=== PATIENT | female | born 1935 | race Caucasian/White ===

== ENCOUNTER 2024-11-12 13:02 | Inpatient (IN) | payer MEDICARE, BC ==
[~2024-11-12] VITALS: Ht 162.6 cm; Wt 42.6 kg
[2024-11-12] MEDS: IV NS 0.9% 1,000 ML BAG IV ONE (13:30)
[2024-11-12] MEDS: VANCOMYCIN 1 GM in IV D5W 250 ML IV ONE (13:30)
[2024-11-12] MEDS: CEFEPIME 1 GM in IV D5W 50 ML IV ONE (13:30)
[2024-11-12 13:56] LABS: BASOPHILS # (AUTO) 0.1 K/uL (0.0-0.2); BASOPHILS % (AUTO) 0.6 % (0.0-2.0); EOSINOPHILS # (AUTO) 0.2 K/uL (0.0-0.7); EOSINOPHILS % (AUTO) 1.7 % (0.0-6.0); HEMATOCRIT 39 % (33-45); LYMPHOCYTES # (AUTO) 1.8 K/uL (0.8-4.8); LYMPHOCYTES % (AUTO) 14.2 % (20.0-44.0); MEAN CORPUSCULAR HEMOGLOBIN 30 PG (26.0-33.0); MEAN CORPUSCULAR HGB CONC 33 g/dl (31.0-36.0); MEAN CORPUSCULAR VOLUME 91 fL (82-100); MONOCYTES # (AUTO) 1.2 K/uL (0.1-1.30); MONOCYTES % (AUTO) 9.6 % (2.0-12.0); NEUTROPHILS # (AUTO) 9.2 K/uL (1.8-8.9); NEUTROPHILS % (AUTO) 73.9 % (43.0-81.0); PLATELET COUNT (AUTO) 263 K/uL (150-450); RED BLOOD CELL COUNT(AUTO) 4.27 MIL/uL (4.0-5.2); WHITE BLOOD COUNT (AUTO) 12.5 K/uL (4.3-11.0)
[2024-11-12 14:02] LABS: INR 1.02 (0.91-1.10); PARTIAL THROMBOPLASTIN TIME 25.3 SEC (24.3-34.3); PROTHROMBIN TIME 10.8 SECS (9.2-11.1)
[2024-11-12 14:05] LABS: CALCIUM, SERUM 9.1 mg/dL (8.5-10.1); CARBON DIOXIDE 25 mmol/L (21-32); CHLORIDE 101 mmol/L (98-107); GLUCOSE 96 mg/dL (74-106); SODIUM SERUM 135 mmol/L (136-145); UREA NITROGEN, BLOOD 18 mg/dL (7-18)
[2024-11-12 14:10] LABS: ALANINE AMINOTRANSFERASE 15 U/L (12-78); ALKALINE PHOSPHATASE 101 U/L (46-116); ASPARTATE AMINOTRANSFERASE 15 U/L (15-37); BILIRUBIN,DIRECT 0.1 mg/dL (0.0-0.2); BILIRUBIN,TOTAL 0.4 mg/dL (0.2-1.0); TOTAL PROTEIN, SERUM 7.1 g/dL (6.4-8.2)
[2024-11-12 14:12] LABS: LACTIC ACID 1.6 mmol/L (0.4-2.0)
[2024-11-12] MEDS ORDERED: QUET50TA PO (14:14)
[2024-11-12] MEDS ORDERED: ARIP2TAB3 PO (14:14)
[2024-11-12] MEDS ORDERED: TRAZ-182 PO (14:14)
[2024-11-12] MEDS ORDERED: DIVA125C5 PO (14:14)
[2024-11-12] MEDS ORDERED: SERT50TA PO (14:14)
[2024-11-12] MEDS ORDERED: ALBU2.5V38 IH (14:14)
[2024-11-12] MEDS ORDERED: LORA-258 PO (14:14)
[2024-11-12] MEDS ORDERED: MAGNESIUM HYDROXIDE 30 ML UDC PO PRN (16:30)
[2024-11-12] MEDS ORDERED: MAG HYDROX/AL HYDROX/SIMETH 30 ML UDC PO PRN (16:30)
[2024-11-12] MEDS ORDERED: ONDANSETRON HCL/PF 4 MG/2 ML VIAL IVP PRN (16:30)
[2024-11-12] MEDS ORDERED: ALBUTEROL FS 2.5 MG/3 ML VIAL.NEB NEB PRN (17:00)
[2024-11-12] MEDS ORDERED: IPRATROPIUM NEB FS 0.5 MG/2.5 ML AMPUL.NEB NEB PRN (17:00)
[2024-11-12 20:00] VITALS: BP 112/91; TEMP 98.1; O2SAT 93
[2024-11-12] MEDS: DIVALPROEX SODIUM 125 MG CAP.SPRINK PO SCH (20:30)
[2024-11-12] MEDS: TRAZODONE 50 MG TABLET PO SCH (22:57)
[2024-11-12] MEDS: CEFEPIME 1 GM in IV D5W 50 ML IV SCH (22:57)
[2024-11-12] MEDS: QUETIAPINE FUMARATE 25 MG TABLET PO SCH (22:57)
[2024-11-12] MEDS: LORAZEPAM 0.5 MG TABLET PO SCH (22:57)
[2024-11-13 04:00] VITALS: BP 110/73; TEMP 97.7; O2SAT 98
[2024-11-13 06:07] LABS: BASOPHILS % (AUTO) 0.2 % (0.0-2.0); EOSINOPHILS # (AUTO) 0.3 K/uL (0.0-0.7); EOSINOPHILS % (AUTO) 2.1 % (0.0-6.0); HEMATOCRIT 38 % (33-45); HEMOGLOBIN 12.6 g/dL (11.5-14.8); LYMPHOCYTES # (AUTO) 1.6 K/uL (0.8-4.8); LYMPHOCYTES % (AUTO) 12.5 % (20.0-44.0); MEAN CORPUSCULAR HEMOGLOBIN 30 PG (26.0-33.0); MEAN CORPUSCULAR HGB CONC 33 g/dl (31.0-36.0); MEAN CORPUSCULAR VOLUME 91 fL (82-100); MONOCYTES % (AUTO) 8.3 % (2.0-12.0); NEUTROPHILS # (AUTO) 9.6 K/uL (1.8-8.9); NEUTROPHILS % (AUTO) 76.9 % (43.0-81.0); PLATELET COUNT (AUTO) 225 K/uL (150-450); RED BLOOD CELL COUNT(AUTO) 4.16 MIL/uL (4.0-5.2); RED CELL DISTRIBUTION WIDTH 14.9 % (11.5-15.0); WHITE BLOOD COUNT (AUTO) 12.5 K/uL (4.3-11.0)
[2024-11-13 06:18] LABS: CALCIUM, SERUM 8.8 mg/dL (8.5-10.1); CREATININE 0.8 mg/dL (0.6-1.3); MAGNESIUM 2.2 mg/dL (1.8-2.4); PHOSPHORUS 3.6 mg/dL (2.5-4.9); POTASSIUM 4.5 mmol/L (3.5-5.1)
[2024-11-13 06:34] LABS: THYROID STIMULATING HORMONE 1.78 uIU/mL (0.358-3.74)
[2024-11-13] MEDS: PANTOPRAZOLE 40 MG TABLET.DR PO SCH (07:55)
[2024-11-13 08:00] VITALS: BP 111/60; TEMP 97.7; O2SAT 99
[2024-11-13] MEDS: SERTRALINE HCL 50 MG TABLET PO SCH (09:23)
[2024-11-13] MEDS: ARIPIPRAZOLE 2 MG TABLET PO SCH (09:23)
[2024-11-13] MEDS: Z GUARD REMEDY 4 OZ OINT TP PRN (09:24)
[2024-11-13] MEDS: ENSURE ENLIVE 237 ML LIQUID (VANILLA) PO SCH (11:15)
[2024-11-13 12:00] VITALS: BP 104/55; TEMP 97.5; O2SAT 96
[2024-11-13] MEDS: ENOXAPARIN SODIUM 30 MG/0.3 ML DISP.SYRIN SQ SCH (13:06)
[2024-11-13] MEDS: VANCOMYCIN 750 MG in IV D5W 250 ML IV SCH (13:07)
[2024-11-13 20:00] VITALS: BP 126/71; TEMP 97.8; O2SAT 94
[2024-11-14] MEDS: IV NS 0.9% 500 ML IV ONE (01:16)
[2024-11-14 01:50] VITALS: BP 107/65; TEMP 98; O2SAT 96
[2024-11-14 04:00] VITALS: BP 107/69; TEMP 98.6; O2SAT 100
[2024-11-14 06:52] LABS: CALCIUM, SERUM 8.7 mg/dL (8.5-10.1); CREATININE 0.8 mg/dL (0.6-1.3)
[2024-11-14] MEDS: IV D5 LR 1,000 ML IV PRN (11:05)
[2024-11-14 12:00] VITALS: BP 110/71; TEMP 98.5; O2SAT 95
[2024-11-14] MEDS: PROSOURCE / PROSTAT (PYXIS) 30 ML UDC PO SCH (13:00)
[2024-11-14 20:00] VITALS: BP 113/62; TEMP 98.4; O2SAT 94
[2024-11-15 04:00] VITALS: BP 97/52; TEMP 98.4; O2SAT 94
[2024-11-15 07:32] LABS: CALCIUM, SERUM 8.9 mg/dL (8.5-10.1); CARBON DIOXIDE 30 mmol/L (21-32); CHLORIDE 106 mmol/L (98-107); CREATININE 0.6 mg/dL (0.6-1.3); GLUCOSE 107 mg/dL (74-106); POTASSIUM 3.7 mmol/L (3.5-5.1); SODIUM SERUM 142 mmol/L (136-145); UREA NITROGEN, BLOOD 10 mg/dL (7-18)
[2024-11-15 08:00] VITALS: BP 91/52; TEMP 98; O2SAT 94
[2024-11-15 11:45] LABS: BASOPHILS # (AUTO) 0.1 K/uL (0.0-0.2); EOSINOPHILS # (AUTO) 0.4 K/uL (0.0-0.7); EOSINOPHILS % (AUTO) 3.3 % (0.0-6.0)
[2024-11-15 11:58] LABS: BASOPHILS % (AUTO) 0.7 % (0.0-2.0); HEMATOCRIT 34 % (33-45); HEMOGLOBIN 11.4 g/dL (11.5-14.8); LYMPHOCYTES # (AUTO) 1.2 K/uL (0.8-4.8); MEAN CORPUSCULAR HEMOGLOBIN 31 PG (26.0-33.0); MEAN CORPUSCULAR HGB CONC 34 g/dl (31.0-36.0); MEAN CORPUSCULAR VOLUME 91 fL (82-100); MONOCYTES # (AUTO) 1.5 K/uL (0.1-1.30); MONOCYTES % (AUTO) 13.8 % (2.0-12.0); NEUTROPHILS # (AUTO) 7.8 K/uL (1.8-8.9); NEUTROPHILS % (AUTO) 71.2 % (43.0-81.0); PLATELET COUNT (AUTO) 227 K/uL (150-450); RED BLOOD CELL COUNT(AUTO) 3.74 MIL/uL (4.0-5.2); RED CELL DISTRIBUTION WIDTH 14.3 % (11.5-15.0); WHITE BLOOD COUNT (AUTO) 10.9 K/uL (4.3-11.0)
[2024-11-15 16:00] VITALS: BP 100/62; TEMP 98.8; O2SAT 94
[2024-11-15 20:00] VITALS: BP 114/57; TEMP 98.1; O2SAT 92
[2024-11-16 04:00] VITALS: BP 119/66; TEMP 99.7
[2024-11-16 07:32] LABS: CALCIUM, SERUM 8.9 mg/dL (8.5-10.1); CREATININE 0.6 mg/dL (0.6-1.3); POTASSIUM 3.8 mmol/L (3.5-5.1)
[2024-11-16 08:00] VITALS: BP 125/63; TEMP 98.5; O2SAT 90
[2024-11-16] MEDS ORDERED: ARIPIPRAZOLE 5 MG TABLET PO SCH (10:30)
[2024-11-16 16:00] VITALS: BP 102/62; TEMP 98.1; O2SAT 96
[2024-11-16] MEDS ORDERED: TRAZODONE 50 MG TABLET PO PRN (16:30)
[2024-11-16 20:00] VITALS: BP 118/57; TEMP 97; O2SAT 96
[2024-11-16] MEDS: ARIPIPRAZOLE 2 MG TABLET PO SCH (21:20)
[2024-11-17 04:00] VITALS: BP 123/74; TEMP 97.5; O2SAT 98
[2024-11-17 08:00] VITALS: BP 117/65; TEMP 98.2; O2SAT 94
[2024-11-17 08:33] LABS: CALCIUM, SERUM 9.7 mg/dL (8.5-10.1); CREATININE 0.6 mg/dL (0.6-1.3); POTASSIUM 3.8 mmol/L (3.5-5.1)
[2024-11-17] MEDS: HYDROCODONE/APAP 5/325MG TABLET PO PRN (10:35)
[2024-11-17 16:00] VITALS: BP 105/66; TEMP 97.5; O2SAT 96
[2024-11-17 20:00] VITALS: BP 116/62; TEMP 97.7; O2SAT 96
[2024-11-18 04:00] VITALS: BP 110/58; TEMP 98.2; O2SAT 96
[2024-11-18 08:00] VITALS: BP 120/71; TEMP 97.9; O2SAT 94
[2024-11-18] MEDS: PANTOPRAZOLE 40 MG/PACK PACK PO SCH (09:17)
[2024-11-18 09:18] LABS: CALCIUM, SERUM 9.3 mg/dL (8.5-10.1); CREATININE 0.8 mg/dL (0.6-1.3); MAGNESIUM 2.1 mg/dL (1.8-2.4); PHOSPHORUS 3.5 mg/dL (2.5-4.9); POTASSIUM 3.7 mmol/L (3.5-5.1)
[2024-11-18 12:28] LABS: BASOPHILS # (AUTO) 0.1 K/uL (0.0-0.2); EOSINOPHILS # (AUTO) 0.3 K/uL (0.0-0.7); EOSINOPHILS % (AUTO) 3.6 % (0.0-6.0); HEMATOCRIT 33 % (33-45); HEMOGLOBIN 11.5 g/dL (11.5-14.8); LYMPHOCYTES # (AUTO) 1.1 K/uL (0.8-4.8); LYMPHOCYTES % (AUTO) 12.7 % (20.0-44.0); MEAN CORPUSCULAR HEMOGLOBIN 31 PG (26.0-33.0); MEAN CORPUSCULAR HGB CONC 34 g/dl (31.0-36.0); MEAN CORPUSCULAR VOLUME 90 fL (82-100); MONOCYTES # (AUTO) 0.8 K/uL (0.1-1.30); MONOCYTES % (AUTO) 9.6 % (2.0-12.0); NEUTROPHILS # (AUTO) 6.2 K/uL (1.8-8.9); NEUTROPHILS % (AUTO) 73.1 % (43.0-81.0); PLATELET COUNT (AUTO) 324 K/uL (150-450); RED BLOOD CELL COUNT(AUTO) 3.73 MIL/uL (4.0-5.2); RED CELL DISTRIBUTION WIDTH 13.9 % (11.5-15.0); WHITE BLOOD COUNT (AUTO) 8.4 K/uL (4.3-11.0)
[2024-11-18] MEDS: ACETAMINOPHEN 325 MG TABLET PO PRN (14:32)
[2024-11-18] MEDS ORDERED: AMIN30LI25 PO (14:48)
[2024-11-18] MEDS ORDERED: LACT-246 PO (14:48)
[2024-11-18 16:00] VITALS: BP 120/75; TEMP 97.7; O2SAT 93
[2024-11-18] MEDS ORDERED: AMOX-427 PO (16:26)
== END 2024-11-18 17:00 | disposition home health service (06) | DRG 177 ==
LOC: ER 13:57 → TELE-TD 17:51 → MEDSG1 19:14
PROVIDERS: ADMIT Nurse Practitioner Acute Care; ATTEND Student in an Organized Health Care Education/Training Program
DX: J15.69 Pneumonia due to other Gram-negative bacteria (principal); E43 Unspecified severe protein-calorie malnutrition; G93.41 Metabolic encephalopathy; J96.01 Acute respiratory failure with hypoxia; R64 Cachexia; F02.84 Dementia in other diseases classified elsewhere, unspecified severity, with anxiety; F02.83 Dementia in other diseases classified elsewhere, unspecified severity, with mood disturbance; F02.818 Dementia in other diseases classified elsewhere, unspecified severity, with other behavioral disturbance; F02.82 Dementia in other diseases classified elsewhere, unspecified severity, with psychotic disturbance; J44.0 Chronic obstructive pulmonary disease with (acute) lower respiratory infection; G93.49 Other encephalopathy; Z68.1 Body mass index [BMI] 19.9 or less, adult; G30.9 Alzheimer's disease, unspecified; Z66 Do not resuscitate; G47.10 Hypersomnia, unspecified; R62.7 Adult failure to thrive; Z79.51 Long term (current) use of inhaled steroids; Z79.899 Other long term (current) drug therapy; F29 Unspecified psychosis not due to a substance or known physiological condition; F32.A Depression, unspecified; I10 Essential (primary) hypertension; K21.9 Gastro-esophageal reflux disease without esophagitis; Y95 Nosocomial condition; R79.89 Other specified abnormal findings of blood chemistry
CPT/HCPCS: 36415; 70450-TC; 71045-TC; 80048-TC; 80076-TC; 80202-TC; 83605-TC; 83735-TC; 84100-TC; 84443-TC; 84484-TC; 85025-TC; 85730-TC; 87040-TC; 87081-TC; 92526; 92611-TC; 97110-TC; 97116-TC; 97530-TC; A4223; G0378; J0692; J1650; J3370; J3371; J3490; J7040; J7050; J7060